=== PATIENT | male | born 1990 | race Caucasian/White ===

== ENCOUNTER 2019-09-26 09:05 | Emergency (ER) | payer BC, SELFPAY ==
[~2019-09-26] VITALS: Ht 172.7 cm; Wt 83.9 kg
[2019-09-26 09:16] VITALS: Ht 172.7 cm; Wt 83.9 kg
[2019-09-26 10:34] VITALS: BP 146/100
== END 2019-09-26 10:24 | disposition home or self-care (01) ==
LOC: ED 09:05
DX: U07.1 COVID-19 (principal)
CPT/HCPCS: Q0092; U0003-CS

== ENCOUNTER 2020-04-15 09:15 | Emergency (ER) | payer BC ==
[~2020-04-15] VITALS: Ht 170.2 cm; Wt 81.6 kg
[2020-04-15 09:20] VITALS: Ht 170.2 cm; Wt 81.6 kg
[2020-04-15] MEDS ORDERED: PEPCID AC20 M2 PO (12:03)
[2020-04-15] MEDS ORDERED: ULTRAM50 MG PO (12:04)
[2020-04-15 12:16] VITALS: BP 125/81
== END 2020-04-15 12:14 | disposition home or self-care (01) ==
LOC: ED 09:15
DX: U07.1 COVID-19 (principal); R10.13 Epigastric pain; R11.0 Nausea; I10 Essential (primary) hypertension; E78.00 Pure hypercholesterolemia, unspecified
CPT/HCPCS: J1885

== ENCOUNTER 2020-04-19 18:18 | Emergency (ER) | payer BC ==
[~2020-04-19] VITALS: Ht 170.2 cm; Wt 77.1 kg
[~2020-04-19 18:18] MED LIST: PEPCID AC20 M2 PO; ULTRAM50 MG PO
[2020-04-19 18:25] VITALS: BP 133/93; Ht 170.2 cm; Wt 77.1 kg
== END 2020-04-19 20:44 | disposition home or self-care (01) ==
LOC: ED 18:18
DX: R51.9 Headache, unspecified (principal); F41.9 Anxiety disorder, unspecified; I10 Essential (primary) hypertension; E78.00 Pure hypercholesterolemia, unspecified; M79.642 Pain in left hand